=== PATIENT | female | born 2000 ===

== ENCOUNTER 2021-03-14 02:02 | Emergency (ER) | payer SELFPAY ==
[2021-03-14 08:27] LABS: Appearance Urine HAZY; Color Urine YELLOW; Glucose Urine UA NEG (NEG); Leukocyte Esterase Urine NEG (NEG); Nitrite Urine NEG (NEG); UACC Culture Trigger NO; Urine Blood TRACE (NEG); Urine Ketones >=80 MG/DL (NEG); Urine Protein 1+ MG/DL (NEG-TRACE)
[2021-03-14 08:30] LABS: UPreg QC Valid YES; Urine Pregnancy NEGATIVE (NEGATIVE)
[2021-03-14 08:42] LABS: Basophils Percent Auto 0.1 % (0-2); Hematocrit 36.1 % (37-47); Hemoglobin 12.3 g/dl (12.0-16.0); Imm Gran Abs Auto 0.05 X10*3/uL (0.00-0.03); Imm Gran Pct Auto 0.5 % (0.0-0.4); Lymphocytes Absolute Auto 0.6 X10*3/uL (1.2-4.9); Lymphocytes Percent Auto 5.8 % (20-40); MANUAL DIFF FLAG SCAN; Mean Corpuscular HGB Conc 34.1 g/dl (31.0-35.0); Mean Corpuscular Hemoglobin 30.9 pg (27.0-33.0); Mean Corpuscular Volume 90.7 fL (80-98); Mean Platelet Volume 10.4 fL (9.4-12.3); Monocytes Absolute Auto 0.1 X10*3/uL (0.1-1.2); Monocytes Percent Auto 1.2 % (2-11); Neutrophils Absolute Auto 9.8 X10*3/uL (2.0-8.3); Neutrophils Percent Auto 92.4 % (45-73); Platelet Count 209 X10*3/uL (160-400); Red Blood Count 3.98 X10*6/uL (4.20-5.50); Red Cell Distribution Width 12.4 % (11.0-16.0); SCAN SMEAR FLAG 1; White Blood Count 10.7 X10*3/uL (4.8-10.8)
[2021-03-14 08:50] LABS: Squamous Epithelial Cell Urine 3+ /LPF; WBC Urine 0-2 /HPF (0-4)
[2021-03-14 08:51] LABS: Bacteria Urine 3+ /LPF; RBC Urine 0-2 /HPF (0)
[2021-03-14 08:56] LABS: Anion Gap 16 (12-20); Blood Urea Nitrogen 12 mg/dL (9-16); Carbon Dioxide 19 mmol/L (22-29); Chloride 108 mmol/L (96-108); Estimated Glomerular Filt Rate > 60; Potassium 3.7 mmol/L (3.3-5.1); Sodium 139 mmol/L (135-145)
[2021-03-14 09:00] LABS: SLIDE REVIEW VERIFIED
[2021-03-14 09:04] VITALS: BP 115/68; PULSE 69; RESP 14; TEMP 36.7; O2SAT 99
== END 2021-03-14 09:30 | disposition home or self-care (01) ==
PROVIDERS: Emergency Provider Emergency Medicine
DX: Z04.9 Encounter for examination and observation for unspecified reason (principal); Z79.899 Other long term (current) drug therapy
CPT/HCPCS: 36415; 80051; 81001; 81025; 82565; 84520; 85025; 96361; 96374; 99281; 99284

== ENCOUNTER 2023-12-06 09:23 | Emergency (ER) | payer OTHER, SELFPAY ==
--- NOTE | ~2023-12-06 | CT_ITS ---
EXAMINATION: CT ABDOMEN AND PELVIS WITH CONTRAST CLINICAL INFORMATION: Right sided abdominal pain. COMPARISON: None available. TECHNIQUE: Multidetector volumetric images were obtained from the superior aspect of the liver through the pubic symphysis following administration 85 mL of Omnipaque 350 intravenous contrast. Sagittal and coronal reformatted images were obtained on the technologist's workstation. Oral contrast: No This CT examination was performed using dose optimization techniques as appropriate, variously including the following: *Automated exposure control *Adjustment of mA and/or kV according to patient size (this includes techniques or standardized protocols for targeted exams where dose is matched to indication/reason for exam; i.e. extremities or head) *Use of iterative reconstruction technique DLP: 630 mGy-cm FINDINGS: LUNG BASES: The lung bases appear clear, with no evidence of inflammation or nodules. LIVER, GALLBLADDER, AND BILIARY TREE: The liver appears unremarkable in size, shape, and attenuation. No focal hepatic lesion or biliary ductal dilatation is appreciated. Unremarkable appearance of the gallbladder. PANCREAS: Unremarkable SPLEEN: Unremarkable ADRENAL GLANDS: Unremarkable KIDNEYS AND URETERS: The kidneys appear unremarkable in size, shape, and attenuation. No hydronephrosis, hydroureter, or calculi seen. BLADDER: Unremarkable GASTROINTESTINAL TRACT: The small and large bowel appear unremarkable. No diverticulosis. Normal-appearing distal ileum and vermiform appendix. ABDOMINAL WALL: No significant hernia is appreciated. LYMPH NODES: No evidence of adenopathy by size criteria. VASCULAR: Left ovarian venous reflux and varices. PELVIC VISCERA: Unremarkable OSSEOUS STRUCTURES: Unremarkable CT/CT abdomen pelvis w IV con IMPRESSION: No acute finding.
[2023-12-06 09:27] VITALS: PULSE 89; RESP 19; TEMP 36.6; O2SAT 98; BMI 26.6
[2023-12-06 09:48] VITALS: BP 111/81; PULSE 93; RESP 22; O2SAT 98
[2023-12-06 10:00] LABS: MANUAL DIFF FLAG NO
[2023-12-06 10:02] LABS: Basophils Percent Auto 0.3 % (0-2); Eosinophils Absolute Auto 0.1 X10*3/uL (0.0-0.4); Eosinophils Percent Auto 0.5 % (0-4); Hematocrit 44.5 % (37.0-47.0); Hemoglobin 15.2 g/dl (12.0-16.0); Imm Gran Abs Auto 0.03 X10*3/uL (0.00-0.03); Imm Gran Pct Auto 0.3 % (0.0-0.4); Lymphocytes Absolute Auto 2.2 X10*3/uL (1.2-4.9); Lymphocytes Percent Auto 19.6 % (20-40); Mean Corpuscular HGB Conc 34.2 g/dl (31.0-35.0); Mean Corpuscular Hemoglobin 30.3 pg (27.0-33.0); Mean Corpuscular Volume 88.8 fL (80.0-98.0); Mean Platelet Volume 11.1 fL (9.4-12.3); Monocytes Absolute Auto 0.5 X10*3/uL (0.1-1.2); Monocytes Percent Auto 4.2 % (2-11); Neutrophils Absolute Auto 8.4 x10*3/uL (2.0-8.3); Neutrophils Percent Auto 75.1 % (45-73); Platelet Count 240 X10*3/uL (160-400); Red Blood Count 5.01 X10*6/uL (4.20-5.50); Red Cell Distribution Width 12.1 % (11.0-16.0); White Blood Count 11.2 X10*3/uL (4.8-10.8)
[2023-12-06] MEDS: diphenhydrAMINE HCL 50 MG/ML VIAL 25 MG IVPUSH (10:06)
[2023-12-06] MEDS: Metoclopramide HCl 10 MG/2 ML VIAL IVPUSH (10:07)
--- NOTE | 2023-12-06 10:09 | ED.NAVMDI ---
HPI - Nausea/Vomiting/Diarrhea General Chief complaint: Nausea/Vomiting/Diarrhea Stated complaint: vomitting Time Seen by Provider: 12/06/23 09:46 Source: patient Mode of arrival: ambulatory Limitations: no limitations History of Present Illness ED Provider: Tray KHALIL HPI Narrative: 23-year-old female with no known medical history presenting to the emergency department with complaints of nausea, vomiting, feeling unwell all of which started this morning. She had a similar episode about 2 weeks ago. She reports these episodes are associated with right sided abdominal pain unable to specify that is upper or lower. She reports that this has been going on for a few months however this time it seems to be more severe. She tells me she has been dry heaving since this morning when she woke up, not actually vomiting anything today. Denies fevers, chills, sick contacts, chest pain, shortness of breath, headache, vision changes, dizziness, weakness, hematochezia, changes in urination or bowel habits. Took Zofran prior to arrival with little to no relief. Hx of cyclic vomiting syndrome via [facility]. Was recently put on atbx ( flagyl for BV) and has been taking them for 5 days and she feels like this could be playing a role in her stomac upset. Related Data Allergies Allergy/AdvReac Type Severity Reaction Status Date / Time No Known Allergies Allergy Verified 12/06/23 09:29 Review of Systems Review of Systems: Yes all other systems are reviewed and are negative PMFSH Past Medical History Attestation statement: The following information was validated with the patient. Source: old records reviewed and nursing notes reviewed Social History Social History Smoked in Last 30 Days: Yes Use of substances other than those prescribed or required for medical reasons: Yes Substance Use Type: Marijuana Advance Directives: No Advance Directives Information Provided: Yes Patient : No Physical Exam Vital Signs: Vital Signs: Last Vital Signs Temp 98 F 12/06/23 09:27 Pulse 91 12/06/23 13:01 Resp 18 12/06/23 13:01 BP 125/83 12/06/23 13:01 Pulse Ox 100 12/06/23 13:01 O2 Del Method Room Air 12/06/23 13:01 BMI result Body Mass Index 26.6 vss Appearance: Alert.? Oriented X3.? No acute distress.? Head: Normocephalic, atraumatic, no step-offs or deformities Eyes: Pupils equal, round and reactive to light.? Neck: Normal inspection.? Neck supple.? CVS: Normal heart rate and rhythm.? Pulses normal.? Respiratory: No respiratory distress.? Breath sounds normal.? Abdomen: Soft and right sided tenderness.? Skin: Skin warm and dry.? Normal skin color.? Normal skin turgor.? Extremities: No lower extremity edema.? No calf ttp. 5/5 strength to bilateral upper and lower extremities Neuro: Oriented X 3.? No motor deficit.? No sensory deficit. CN 2-12 intact Course Reevaluation(s) Reevaluation #1: CBC with leukocytosis likely reactive secondary to nausea and vomiting. Chemistry with slightly elevated anion gap likely secondary to acute dehydration. Normal BUN and creatinine. Magnesium 1.5 will give oral Mag. Normal lipase. Normal beta hCG Patient was having significant dry heaving, nausea even after Reglan, Benadryl and Zofran. I did try Compazine with little to no effect. IV Haldol was ordered, prior to giving this EKG was obtained normal QT/QTC. Time: 12:00 Reevaluation #2: Patient no longer dry heaving. Resting. Time: 12:26 Reevaluation #3: CT abdomen and pelvis no acute findings. Patient does have history of cyclic vomiting. Seems to be doing a lot better. No longer dry heaving or having nausea and vomiting. Plan is for discharge home. Will have her follow-up with PCP. Not complaining of any pain. Educated patient on diagnosis and treatment plan, answered all question, patient verbalizes understanding. At this time patient will be discharged home, advised to return with new or worsening symptoms. Educated on worrisome signs and symptoms and when to return. At this time I feel comfortable discharge home. Time: 14:40 Medications Administered Discontinued Medications Generic Name Dose Route Start Last Admin Trade Name Freq PRN Reason Stop Dose Admin Diphenhydramine HCl 25 mg 12/06/23 09:59 12/06/23 10:06 Diphenhydramine Hcl 50 Mg/Ml Vial IVPUSH 12/06/23 10:00 25 mg ONCE ONE Administration Haloperidol Lactate 2.5 mg 12/06/23 10:55 12/06/23 11:09 Haloperidol Lactate 5 Mg/Ml Vial IVPUSH 12/06/23 10:56 2.5 mg ONCE ONE Administration Sodium Chloride 1,000 mls @ 999 mls/hr 12/06/23 12:45 12/06/23 12:59 Ns IV 12/06/23 13:45 999 mls/hr .Q1H1M LENORA Administration Iohexol 85 ml 12/06/23 12:08 12/06/23 12:08 Iohexol 350 Mg/Ml 100 Ml Infus..Btl IV 12/06/23 12:09 85 ml ONCE ONE Administration Lorazepam 1 mg 12/06/23 10:09 12/06/23 10:59 Lorazepam 2 Mg/Ml Vial IVPUSH 12/06/23 10:10 1 mg ONCE ONE Administration Magnesium Oxide 400 mg 12/06/23 12:26 12/06/23 12:59 Magnesium Oxide 400 Mg Tablet PO 12/06/23 12:27 400 mg ONCE ONE Administration Metoclopramide HCl 10 mg 12/06/23 09:59 12/06/23 10:07 Metoclopramide Hcl 10 Mg/2 Ml Vial IVPUSH 12/06/23 10:00 10 mg ONCE ONE Administration Medical Decision Making Medical Decision Making [facility] Narrative: 1013 23-year-old female presents with nausea, and abdominal pain reported vomiting a few weeks ago however not today. Physical exam patient dry heaving upon exam with diffuse right-sided abdominal tenderness. Will rule out cholecystitis versus cholelithiasis versus appendicitis versus viral illness versus . Unlikely ectopic, torsion, acute abdomen, diverticulitis, pancreatitis. Other differentials include cyclic vomiting. She could also be having nausea and vomiting secondary to effects of antibiotic (Flagyl) which makes people sick particularly if taking with alcohol Plan labs, imaging, urine. Differential Diagnosis Differential Diagnoses: The differential diagnosis associated with the presentation includes Will rule out cholecystitis versus cholelithiasis versus appendicitis versus viral illness versus . Unlikely ectopic, torsion, acute abdomen, diverticulitis, pancreatitis. Other differentials include cyclic vomiting. She could also be having nausea and vomiting secondary to effects of antibiotic (Flagyl) which makes people sick particularly if taking with alcohol Admission/Observation Consideration of admission/observation: Escalation of care including admission/observation considered unlikely Lab Data [facility] Lab Attestation statement: I reviewed the patient's lab results. 12/06/23 09:57 12/06/23 09:57 Labs: Lab Results 12/06/23 12/06/23 Range/Units 09:57 11:13 WBC 11.2 H (4.8-10.8) X10*3/uL RBC 5.01 (4.20-5.50) X10*6/uL Hgb 15.2 (12.0-16.0) g/dl Hct 44.5 (37.0-47.0) % MCV 88.8 (80.0-98.0) fL MCH 30.3 (27.0-33.0) pg MCHC 34.2 (31.0-35.0) g/dl RDW 12.1 (11.0-16.0) % Plt Count 240 (160-400) X10*3/uL MPV 11.1 (9.4-12.3) fL Immature Gran % (Auto) 0.3 (0.0-0.4) % Neut % (Auto) 75.1 H (45-73) % Lymph % (Auto) 19.6 L (20-40) % [place] % (Auto) 4.2 (2-11) % Eos % (Auto) 0.5 (0-4) % Baso % (Auto) 0.3 (0-2) % Lymph # (Auto) 2.2 (1.2-4.9) X10*3/uL [place] # (Auto) 0.5 (0.1-1.2) X10*3/uL Eos # (Auto) 0.1 (0.0-0.4) X10*3/uL Baso # (Auto) 0.0 (0.0-0.2) X10*3/uL Abs Immat Gran (auto) 0.03 (0.00-0.03) X10*3/uL Absolute Neuts (auto) 8.4 H (2.0-8.3) x10*3/uL Absolute Nucleated RBC 0.000 (0.0-0.012) X10*3/uL Nucleated RBC % (auto) 0.0 (0.0-0.2) /100WBC Sodium 142 (135-145) mmol/L Potassium 3.6 (3.3-5.1) mmol/L Chloride 108 (96-108) mmol/L Carbon Dioxide 17 L (22-29) mmol/L Anion Gap 21 H (12-20) BUN 11 (9-16) mg/dL Creatinine 0.77 (0.5-1.4) mg/dL Estim Creat Clear Calc 105.1 Estimated GFR > 60 Random Glucose 125 H (60-115) mg/dL Calcium 10.0 (8.4-10.2) mg/dL Magnesium 1.5 L (1.6-2.6) mg/dL Total Bilirubin 0.9 (0.0-1.0) mg/dL AST 12 (5-31) U/L ALT 9 (0-31) U/L Alkaline Phosphatase 47 (39-117) U/L Total Protein 8.2 H (6.5-8.0) g/dL Albumin 4.9 (3.5-5.0) g/dL Lipase 19 (8-78) U/L Beta HCG, Quant < 2 mIU/mL Ethyl Alcohol < 10 mg/dL Independent Interpretation I performed an independent interpretation of an: CT Scan Radiology Impression Discussion of test interpretation with radiology: I have reviewed the radiologist's reading. External Record Review External record reviewed: Office record, Outpatient record and Prior outpatient labs Critical Care Time Critical Care Time Critical Care Time: Yes Total Critical Care Time: 35 Attestation: I attest to this time spent taking care of the patient, obtaining history, physical, reviewing labs, imaging, speaking to my attending, specialist or hospitalist. Discharge Plan Discharge Clinical Impression: Cyclical vomiting Patient Disposition: Home, Self-Care Instructions: Acute Nausea and Vomiting (ED) Additional Instructions: Take your medications as prescribed. If you were prescribed antibiotics today, it is important that you take your medication to their entirety, do not skip any doses, do not finish them early. Follow-up with your primary care provider this week. Return to the emergency department with new or worsening symptoms. Such as fevers, chills, chest pain, shortness of breath, nausea, vomiting, dizziness, headache, vision changes, lethargy In case of emergency call [address]/CT abdomen pelvis w IV con IMPRESSION: No acute finding. Referrals: Physician,Unknown J [Primary Care Provider] - 2 days Stand Alone Forms: Work/School Release Print Language: Slovak
--- NOTE | 2023-12-06 10:18 | PC.NURSE ---
Pt is alert and oriented x 4, states n/v starting this morning with general abd pain more so to RUQ. States H/O same episodes. Carpal/pedal spasms noted, encouraged to slow breathing with some effect. Skin pink warm and dry. Actively vomiting during assessment. Denies urinary sx. IV established and medicated as charted. Visitor at bedside
[2023-12-06 10:26] LABS: Alanine Aminotransferase 9 U/L (0-31); Albumin Level 4.9 g/dL (3.5-5.0); Alkaline Phosphatase 47 U/L (39-117); Anion Gap 21 (12-20); Aspartate Amino Transferase 12 U/L (5-31); Bilirubin Total 0.9 mg/dL (0.0-1.0); Blood Urea Nitrogen 11 mg/dL (9-16); Carbon Dioxide 17 mmol/L (22-29); Chloride 108 mmol/L (96-108); Creatinine Clr Calc Pharmacy 105.1; Estimated Glomerular Filt Rate > 60; Glucose Random 125 mg/dL (60-115); Lipase 19 U/L (8-78); Magnesium 1.5 mg/dL (1.6-2.6); Potassium 3.6 mmol/L (3.3-5.1); Sodium 142 mmol/L (135-145); Total Protein 8.2 g/dL (6.5-8.0)
--- NOTE | 2023-12-06 10:55 | ECG_ITS ---
Test Reason : NAUSEA Blood Pressure : / mmHG Vent. Rate : 072 BPM Atrial Rate : 072 BPM P-R Int : 146 ms QRS Dur : 090 ms QT Int : 394 ms P-R-T Axes : 050 079 -03 degrees QTc Int : 431 ms Normal sinus rhythm with sinus arrhythmia ST & T wave abnormality, consider inferior ischemia ST & T wave abnormality, consider anterolateral ischemia Abnormal ECG No previous ECGs available Referred By: Fela Chau Electronically Signed By:ISIDORO FERRELL MD
[2023-12-06] MEDS: LORazepam 2 MG/ML VIAL 1 MG IVPUSH (10:59)
[2023-12-06] MEDS: Haloperidol Lactate 5 MG/ML VIAL 2.5 MG IVPUSH (11:09)
--- NOTE | 2023-12-06 11:09 | PC.NURSE ---
relief s/p initial medication interventions however pt now vomiting and carpal/pedal spasms again noted. medicated as charted
--- NOTE | 2023-12-06 11:18 | PC.NURSE ---
pt reporting cont'd abd pain, nausea/vomiting, muscle spasms. EKG QTc <500, medicated per Aug IVP ativan and haldol.
[2023-12-06 11:39] LABS: HCG Quantitative < 2 mIU/mL
[2023-12-06] MEDS: iohexoL 350 MG/ML 100 ML INFUS..BTL 85 ML IV (12:08)
[2023-12-06 12:38] LABS: Ethanol < 10 mg/dL
[2023-12-06] MEDS: Magnesium Oxide 400 MG TABLET PO (12:59)
[2023-12-06] MEDS: 0.9 % Sodium Chloride 1,000 ML 999 ML IV (12:59)
[2023-12-06 13:01] VITALS: BP 125/83; PULSE 91; RESP 18; O2SAT 100
[2023-12-06 14:41] VITALS: BP 106/69; PULSE 61; RESP 12; O2SAT 100
[2023-12-06 14:58] VITALS: BP 106/69; PULSE 75; RESP 17; TEMP 36.5; O2SAT 98
== END 2023-12-06 14:59 | disposition home or self-care (01) ==
PROVIDERS: Physician Assistant; Emergency Provider Emergency Medicine Emergency Medical Services
DX: R11.15 Cyclical vomiting syndrome unrelated to migraine (principal)
CPT/HCPCS: 36415; 74177; 80053; 80307; 83690; 83735; 84702; 85025; 93005; 96374; 96375; 99284; 99285; J1200; J1630; J2060; J2765; Q9967

== ENCOUNTER → 2023-12-06 10:55 | Outpatient (BNV) | payer OTHER, SELFPAY | PROVIDERS: Emergency Provider Emergency Medicine Emergency Medical Services; Visit Provider Internal Medicine Cardiovascular Disease | DX: I49.9 Cardiac arrhythmia, unspecified (principal) | CPT/HCPCS: 93010 ==

== ENCOUNTER 2023-12-06 20:11 | Emergency (ER) | payer OTHER, SELFPAY ==
[2023-12-06 20:24] VITALS: BP 121/63; PULSE 100; RESP 18; TEMP 37.2; O2SAT 98; BMI 26.6
[2023-12-06 20:40] LABS: Basophils Percent Auto 0.1 % (0-2); Hematocrit 39.1 % (37.0-47.0); Hemoglobin 14.3 g/dl (12.0-16.0); Imm Gran Abs Auto 0.02 X10*3/uL (0.00-0.03); Imm Gran Pct Auto 0.2 % (0.0-0.4); Lymphocytes Absolute Auto 0.6 X10*3/uL (1.2-4.9); Lymphocytes Percent Auto 6.1 % (20-40); MANUAL DIFF FLAG SCAN; Mean Corpuscular HGB Conc 36.6 g/dl (31.0-35.0); Mean Corpuscular Hemoglobin 31.7 pg (27.0-33.0); Mean Corpuscular Volume 86.7 fL (80.0-98.0); Monocytes Absolute Auto 0.1 X10*3/uL (0.1-1.2); Neutrophils Absolute Auto 9.7 x10*3/uL (2.0-8.3); Neutrophils Percent Auto 92.6 % (45-73); Platelet Count 220 X10*3/uL (160-400); Red Blood Count 4.51 X10*6/uL (4.20-5.50); SCAN SMEAR FLAG 1; White Blood Count 10.4 X10*3/uL (4.8-10.8)
--- NOTE | 2023-12-06 20:43 | ED_ITS ---
HPI - General Adult General Chief complaint: General Medical Stated complaint: vomiting/freezing here ealier today Time Seen by Provider: 12/06/23 20:34 Source: patient Mode of arrival: ambulatory Limitations: no limitations History of Present Illness ED Provider: Dr. Magalie Carmichael HPI narrative: patient comes to the emergency room complaining of nausea vomiting and abdominal pain. Patient states that she was seen here earlier today for the same, diagnosed with cyclical vomiting, admits to using marijuana. Patient states that she tried eating at home, started vomiting. Also, patient states that her hands and feet look up , patient admits to have anxiety. Related Data Previous Rx's ?Medication ?Instructions ?Recorded metoclopramide HCl 5 mg tablet 5 mg PO . t.i.d. PRN nausea and 12/06/23 (Reglan) vomiting #14 tabs Allergies Allergy/AdvReac Type Severity Reaction Status Date / Time No Known Allergies Allergy Verified 12/06/23 20:27 Review of Systems 2 Review of Systems: Constitutional : No Weight loss, No Fever, No Chills, No Night Sweats, No Fatigue, No Malaise ENT/Mouth : No Hearing loss, No Ear Pain, No Nasal Congestion, No Sinus Pain, No Hoarseness, No sore throat, No Rhinorrhea, No Swallowing Difficulty Eyes: No Eye Pain, No Swelling, No Redness, No Foreign Body, No Discharge, No Vision Changes Cardiovascular : No Chest Pain, No SOB, No Dyspnea on Exertion, No Orthopnea, No Edema, No Palpitations Respiratory : No Cough, No Sputum, No Wheezing, No Smoke Exposure, No Dyspnea Gastrointestinal : Complaining of nausea and vomiting, No Diarrhea, No Constipation, complaining of abdominal discomfort Genitourinary : no irregular bleeding, No Dysuria, No Urinary Frequency, No Hematuria, No Urinary Incontinence, No Urgency, No Flank Pain, No Urinary Flow Changes, No Hesitancy Musculoskeletal : complaining of hands and feet locking up , No joint pain, No Myalgias, No Joint Swelling Skin : No Skin Lesions, No rash Neuro : No Weakness, No Numbness, No Paresthesias, No Loss of Consciousness, No Dizziness, No Headache Psych : No Anxiety/Panic, No Depression, No SI/HI/AH/VH, No Social Issues, Heme/Lymph: No Bruising, No Bleeding,No Lymphadenopathy Endocrine : No Polyuria, No Polydipsia, No Temperature Intolerance PMFSH Past Medical History Medical History (Updated 12/06/23 @ 23:54 by Magalie Carmichael MD) Cyclical vomiting Social History Social History Smoked in Last 30 Days: No Use of substances other than those prescribed or required for medical reasons: Yes Substance Use Type: Marijuana Advance Directives: No Advance Directives Information Provided: No Do you have a plan to hurt others: No Plan Patient : No Physical Exam ED Vital Signs: Vital Signs - 24 hr 12/06/23 20:24 12/06/23 22:53 Temperature 98.9 F 98.4 F Pulse Rate 100 92 Respiratory Rate 18 18 Blood Pressure 121/63 126/58 L Pulse Oximetry 98 100 Oxygen Delivery Method Room Air Room Air BMI result Body Mass Index 26.6 Const Other: Appearance: Alert. Oriented X3. No acute distress. well-appearing but slightly uncomfortable Eyes: Pupils equal, round and reactive to light. ENT: Pharynx normal. Neck: Normal inspection. Neck supple. No lymph nodes noted. No crepitus CVS: Normal heart rate and rhythm. Pulses normal. Normal S1 and S2 Respiratory: No respiratory distress. Breath sounds normal. No Wheezing. No rales Abdomen: Soft , discomfort to palpation in all quadrants, No rigidity. No distention. Skin: Skin warm and dry. Normal skin color. Normal skin turgor. Extremities: No lower extremity edema. No Lacerations. No Rash Neuro: Oriented X 3. No motor deficit. No sensory deficit. Moving all extremities. No slurred speech. CN 2 through 12 grossly intact Psych: calm, cooperative, normal affect Course Course Course Narrative: - we will repeat labs, check for electrolyte abnormalities. - I reviewed patient's labs from earlier today, no obvious abnormality. - I reviewed patient's CT scan of the abdomen from earlier today, no acute abnormalities. - Patient receiving IV fluids, Reglan, Pepcid, Benadryl and Ativan Medications Administered Discontinued Medications Generic Name Dose Route Start Last Admin Trade Name Freq PRN Reason Stop Dose Admin Diphenhydramine HCl 50 mg 12/06/23 20:42 12/06/23 21:14 Diphenhydramine Hcl 50 Mg/Ml Vial IVPUSH 12/06/23 20:43 50 mg ONCE ONE Administration Famotidine 20 mg 12/06/23 20:42 12/06/23 21:16 Famotidine/Pf 20 Mg/2 Ml Vial IVPUSH 12/06/23 20:43 20 mg ONCE ONE Administration Sodium Chloride 1,000 mls @ 999 mls/hr 12/06/23 20:42 12/06/23 22:31 Ns IVCONT 12/06/23 21:42 Infused .Q1H1M ONE Infusion Lorazepam 1 mg 12/06/23 20:42 12/06/23 21:14 Lorazepam 2 Mg/Ml Vial IVPUSH 12/06/23 20:43 1 mg STAT STA Administration Metoclopramide HCl 10 mg 12/06/23 20:42 12/06/23 21:16 Metoclopramide Hcl 10 Mg/2 Ml Vial IVPUSH 12/06/23 20:43 10 mg ONCE ONE Administration Medical Decision Making Medical Decision Making [facility] Narrative: - my interpretation of labs, no acute hematology and chemistry abnormality, better than on her previous visit - after IV treatment, patient feeling much better, no longer cramping in her lower or upper extremities, no vomiting, patient was able to tolerate both fluid and p.o. solids and feels well to be going home Differential Diagnosis Differential Diagnoses: The differential diagnosis associated with the presentation includes ( cyclical vomiting, anxiety) Lab Data [facility] Lab Attestation statement: I reviewed the patient's lab results. 12/06/23 20:34 12/06/23 20:34 Labs: Lab Results 12/06/23 12/06/23 Range/Units 20:34 21:39 WBC 10.4 (4.8-10.8) X10*3/uL RBC 4.51 (4.20-5.50) X10*6/uL Hgb 14.3 (12.0-16.0) g/dl Hct 39.1 (37.0-47.0) % MCV 86.7 (80.0-98.0) fL MCH 31.7 (27.0-33.0) pg MCHC 36.6 H (31.0-35.0) g/dl RDW 12.0 (11.0-16.0) % Plt Count 220 (160-400) X10*3/uL MPV 11.0 (9.4-12.3) fL Immature Gran % (Auto) 0.2 (0.0-0.4) % Neut % (Auto) 92.6 H (45-73) % Lymph % (Auto) 6.1 L (20-40) % [place] % (Auto) 1.0 L (2-11) % Eos % (Auto) 0.0 (0-4) % Baso % (Auto) 0.1 (0-2) % Lymph # (Auto) 0.6 L (1.2-4.9) X10*3/uL [place] # (Auto) 0.1 (0.1-1.2) X10*3/uL Eos # (Auto) 0.0 (0.0-0.4) X10*3/uL Baso # (Auto) 0.0 (0.0-0.2) X10*3/uL Abs Immat Gran (auto) 0.02 (0.00-0.03) X10*3/uL Absolute Neuts (auto) 9.7 H (2.0-8.3) x10*3/uL Absolute Nucleated RBC 0.000 (0.0-0.012) X10*3/uL Nucleated RBC % (auto) 0.0 (0.0-0.2) /100WBC Smear Tech's Comments VERIFIED Sodium 140 (135-145) mmol/L Potassium 3.8 (3.3-5.1) mmol/L Chloride 109 H (96-108) mmol/L Carbon Dioxide 15 L (22-29) mmol/L Anion Gap 20 (12-20) BUN 9 (9-16) mg/dL Creatinine 0.66 (0.5-1.4) mg/dL Estim Creat Clear Calc 122.7 Estimated GFR > 60 Random Glucose 130 H (60-115) mg/dL Calcium 9.7 (8.4-10.2) mg/dL Magnesium 1.5 L (1.6-2.6) mg/dL Total Bilirubin 1.0 (0.0-1.0) mg/dL AST 11 (5-31) U/L ALT 10 (0-31) U/L Alkaline Phosphatase 45 (39-117) U/L Total Protein 7.9 (6.5-8.0) g/dL Albumin 4.8 (3.5-5.0) g/dL Lipase 14 (8-78) U/L Urine Color Yellow Urine Appearance Clear Urine pH 8.5 (5.0-9.0) Ur Specific [place] >= 1.030 H (1.005-1.025) Urine Protein Trace (Neg-Trace) mg/dL Urine Glucose (UA) Negative (Negative) mg/dL Urine Ketones >=160 (Negative) mg/dL Urine Blood Trace H (Negative) Urine Nitrite Negative (Negative) Ur Leukocyte Esterase Negative (Negative) Urine RBC 11-20 H (0-2) /HPF Urine WBC 0-5 (0-5) /HPF Ur Squamous Epith Cells 11-20 (0-2) /HPF Urine Bacteria 1+ (None Seen) Hyaline Casts 0-2 (0-2) /LPF Urine Test NEGATIVE (NEGATIVE) Urine Opiates Screen Not Detected (Not Detect) Ur Buprenorphine Scrn Not Detected (Not Detect) ng/mL Ur Oxycodone Screen Not Detected (Not Detect) ng/mL Urine Methadone Screen Not Detected (Not Detect) ng/mL Urine Fentanyl Screen Not Detected (Not Detect) Ur Barbiturates Screen Not Detected (Not Detect) Ur Phencyclidine Scrn Not Detected (Not Detect) Ur Amphetamines Screen Not Detected (Not Detect) U Benzodiazepines Scrn Not Detected (Not Detect) Urine Cocaine Screen Not Detected (Not Detect) U Marijuana (THC) Screen POSITIVE H (Not Detect) Ethyl Alcohol < 10 mg/dL Critical Care Time Critical Care Time Critical Care Time: Yes Total Critical Care Time: 45 Attestation: Please follow-up with your primary care physician tomorrow. If you have any worsening or new symptoms, please return to the emergency room or call 911 Discharge Plan Discharge Clinical Impression: Cyclical vomiting, Anxiety Patient Disposition: Home, Self-Care Instructions: Acute Nausea and Vomiting (ED), Anxiety (ED) Additional Instructions: Please follow-up with your primary care physician tomorrow. please stop using marijuana as this is the main cause of the reoccurring abdominal pain nausea and vomiting. If you have any worsening or new symptoms, please return to the emergency room or call 911 Prescriptions: New metoclopramide HCl [Reglan] 5 mg tablet 5 mg PO . t.i.d. PRN (Reason: nausea and vomiting) Qty: 14 0RF Print Language: Croatian
[2023-12-06 20:54] LABS: Alanine Aminotransferase 10 U/L (0-31); Albumin Level 4.8 g/dL (3.5-5.0); Alkaline Phosphatase 45 U/L (39-117); Anion Gap 20 (12-20); Aspartate Amino Transferase 11 U/L (5-31); Blood Urea Nitrogen 9 mg/dL (9-16); Calcium 9.7 mg/dL (8.4-10.2); Carbon Dioxide 15 mmol/L (22-29); Chloride 109 mmol/L (96-108); Creatinine Clr Calc Pharmacy 122.7; Estimated Glomerular Filt Rate > 60; Glucose Random 130 mg/dL (60-115); Lipase 14 U/L (8-78); Magnesium 1.5 mg/dL (1.6-2.6); Potassium 3.8 mmol/L (3.3-5.1); Sodium 140 mmol/L (135-145); Total Protein 7.9 g/dL (6.5-8.0)
[2023-12-06 20:58] LABS: SLIDE REVIEW VERIFIED
[2023-12-06] MEDS: 0.9 % Sodium Chloride 1,000 ML 999 ML IVCONT (21:09)
[2023-12-06] MEDS: LORazepam 2 MG/ML VIAL 1 MG IVPUSH (21:14)
[2023-12-06] MEDS: diphenhydrAMINE HCL 50 MG/ML VIAL IVPUSH (21:14)
[2023-12-06] MEDS: Metoclopramide HCl 10 MG/2 ML VIAL IVPUSH (21:16)
[2023-12-06] MEDS: Famotidine/PF 20 MG/2 ML VIAL IVPUSH (21:16)
[2023-12-06 21:47] LABS: Appearance Urine Clear; Color Urine Yellow; Glucose Urine UA Negative (Negative); Leukocyte Esterase Urine Negative (Negative); Nitrite Urine Negative (Negative); PH 8.5 (5.0-9.0); Specific Gravity - Urine >= 1.030 (1.005-1.025); UMIC TRIGGER UACC YES; Urine Blood Trace (Negative); Urine Ketones >=160 mg/dL (Negative); Urine Protein Trace mg/dL (Neg-Trace)
[2023-12-06 21:49] LABS: UPreg QC Valid YES; Urine Pregnancy NEGATIVE (NEGATIVE)
[2023-12-06 21:52] LABS: Bacteria Urine 1+ (None Seen); Hyaline Casts Urine 0-2 /LPF (0-2); WBC Urine 0-5 /HPF (0-5)
[2023-12-06 21:59] LABS: Amphetamine Screen Urine Not Detected (Not Detect); Barbiturates, Urine Not Detected (Not Detect); Benzodiazepines Screen Urine Not Detected (Not Detect); Buprenorphine Scr Not Detected (Not Detect); Cannabinoid Screen Urine POSITIVE (Not Detect); Cocaine Screen Urine Not Detected (Not Detect); Fentanyl, urine Not Detected (Not Detect); Methadone Screen, Urine Not Detected (Not Detect); Opiate Screen Urine Not Detected (Not Detect); Oxycodone Screen Urine Not Detected (Not Detect); Phencyclidine Screen Urine Not Detected (Not Detect)
[2023-12-06 22:20] LABS: Ethanol < 10 mg/dL
--- NOTE | 2023-12-06 22:50 | PC.NURSE ---
pt rec antiemetic and 1L IVF. pt complains of 5/10 chest wall pain- she believes this pain is from her excessive vomitting throughout the day. sig other at bedside-- no additional complaints at this time,. call [facility] with reach
[2023-12-06 22:53] VITALS: BP 126/58; PULSE 92; RESP 18; TEMP 36.9; O2SAT 100
--- NOTE | 2023-12-06 23:28 | PC.NURSE ---
assumed care of patient at 2300. report received from Aleta FONTENOT
--- NOTE | 2023-12-06 23:55 | PC.NURSE ---
pt pass p.o. trial with no issues. reports feeling much better and ok to go home
[2023-12-06 23:59] VITALS: BP 126/58; PULSE 92; RESP 18; TEMP 36.9; O2SAT 100
== END 2023-12-07 | disposition home or self-care (01) ==
PROVIDERS: Physician Assistant Medical; Emergency Provider Emergency Medicine
DX: R11.15 Cyclical vomiting syndrome unrelated to migraine (principal); F41.9 Anxiety disorder, unspecified; F12.90 Cannabis use, unspecified, uncomplicated
CPT/HCPCS: 36415; 80053; 80307; 81001; 81025; 83690; 83735; 85025; 96361; 96374; 96375; 99284; J1200; J2060; J2765

== ENCOUNTER 2024-02-24 09:26 | Observation (INO) | payer OTHER, SELFPAY ==
--- NOTE | ~2024-02-24 | US_ITS ---
EXAMINATION: US ABDOMEN LIMITED CLINICAL INFORMATION: Right upper quadrant pain. COMPARISON: None available. TECHNIQUE: Real-time imaging of the right upper quadrant abdominal viscera. Imaging of the gallbladder and common bile duct only. FINDINGS: GALLBLADDER: Normal. The gallbladder is physiologically distended without evidence of stones, sludge, polyps, wall thickening or pericholecystic fluid. COMMON BILE DUCT: Normal in caliber measuring 0.43 cm in diameter. US/US abdomen limited IMPRESSION: No sonographic evidence of cholecystitis. Electronically signed by: Yayo Santizo DO 02/24/2024 10:09 PM EDT
[2024-02-24 09:43] VITALS: BP 127/78; PULSE 90; RESP 30; O2SAT 100; BMI 23.9
--- NOTE | 2024-02-24 09:50 | ECG_ITS ---
Test Reason : SOB Blood Pressure : / mmHG Vent. Rate : 071 BPM Atrial Rate : 072 BPM P-R Int : 110 ms QRS Dur : 084 ms QT Int : 426 ms P-R-T Axes : 049 071 006 degrees QTc Int : 462 ms Poor data quality, interpretation may be adversely affected Undetermined rhythm Nonspecific ST and T wave abnormality Abnormal ECG When compared with ECG of 06-DEC-2023 11:01, Current undetermined rhythm precludes rhythm comparison, needs review ST now depressed in Anterior leads T wave inversion less evident in Inferior leads Referred By: Generic ED Physician Electronically Signed By:MATT BRAN
[2024-02-24 10:03] LABS: MANUAL DIFF FLAG NO
--- NOTE | 2024-02-24 10:11 | PC.NURSE ---
pt aox4, ambulatory. comes to ED with friend for eval of nausea, dry heaving, panic attack, feet and hand spasms since this morning. pt woke up, went to the bathroom, and started having this episode. hx of the same. Reports sharp, severe RUQ pain worse with inspiration. Lips dry. Denies drug use, alcohol use, says smoked marijuana two days ago. IV placed 20g left AC. EKG done.
--- NOTE | 2024-02-24 10:16 | PC.NURSE ---
pt comes to ED accompanied by friend. AOx4. reports this morning she woke up, went to bathroom and started having an episode of nausea, dry heaving, panic attack, spasms of hands and feet. severe stabbing RUQ pain worse with inspiration. Lips dry. pt reports hx of the same. Denies alcohol use, says they smoked marijuana two days ago, denies other drug use. 20g IV left AC.
[2024-02-24 10:18] LABS: Basophils Percent Auto 0.2 % (0-2); Eosinophils Percent Auto 0.1 % (0-4); Hematocrit 40.6 % (37.0-47.0); Hemoglobin 14.2 g/dl (12.0-16.0); Imm Gran Abs Auto 0.06 X10*3/uL (0.00-0.03); Imm Gran Pct Auto 0.5 % (0.0-0.4); Lymphocytes Absolute Auto 1.7 X10*3/uL (1.2-4.9); Lymphocytes Percent Auto 13.8 % (20-40); Mean Corpuscular Hemoglobin 31.5 pg (27.0-33.0); Mean Platelet Volume 11.6 fL (9.4-12.3); Monocytes Absolute Auto 0.4 X10*3/uL (0.1-1.2); Monocytes Percent Auto 2.9 % (2-11); Neutrophils Absolute Auto 10.4 x10*3/uL (2.0-8.3); Neutrophils Percent Auto 82.5 % (45-73); Platelet Count 289 X10*3/uL (160-400); Red Blood Count 4.51 X10*6/uL (4.20-5.50); White Blood Count 12.6 X10*3/uL (4.8-10.8)
[2024-02-24 10:20] LABS: Anion Gap 20 (12-20); Blood Urea Nitrogen 13 mg/dL (9-16); Calcium 10.2 mg/dL (8.4-10.2); Carbon Dioxide 16 mmol/L (22-29); Chloride 110 mmol/L (96-108); Creatinine Clr Calc Pharmacy 88.2; Estimated Glomerular Filt Rate > 60; Ethanol < 10 mg/dL; Glucose Random 159 mg/dL (60-115); Magnesium 1.9 mg/dL (1.6-2.6); Potassium 3.5 mmol/L (3.3-5.1); Sodium 142 mmol/L (135-145)
[2024-02-24 10:30] LABS: Troponin-I High Sensitivity < 2.7 ng/L (<3.5-17.0)
[2024-02-24] MEDS: 0.9 % Sodium Chloride 1,000 ML 999 ML IV ×3 (10:39→15:22)
[2024-02-24] MEDS: LORazepam 2 MG/ML VIAL 1 MG IVPUSH (10:40)
[2024-02-24] MEDS: droPERidol 5 MG/2 ML VIAL 1.25 MG IVPUSH (10:41)
[2024-02-24 10:45] LABS: Influenza A PCR NEGATIVE (Negative); Influenza B PCR NEGATIVE (Negative); Resp Syncy Virus RNA Qual PCR NEGATIVE (Negative); SARS COV2 PCR INHOUSE NEGATIVE (Negative)
[2024-02-24 10:54] LABS: Alanine Aminotransferase 9 U/L (0-31); Albumin Level 4.6 g/dL (3.5-5.0); Alkaline Phosphatase 40 U/L (39-117); Aspartate Amino Transferase 10 U/L (5-31); Bilirubin Direct 0.2 mg/dL (0.0-0.5); Bilirubin Total 0.6 mg/dL (0.0-1.0); Lipase 16 U/L (8-78); Total Protein 7.8 g/dL (6.5-8.0)
--- NOTE | 2024-02-24 11:06 | ED_ITS ---
HPI - General Adult General Chief complaint: General Medical Stated complaint: panic [id number] Time Seen by Provider: 02/24/24 10:28 Source: patient Mode of arrival: ambulatory Limitations: no limitations History of Present Illness ED Provider: KAREEM LUICA narrative: 23 yo female with sig PMH of anxiety induced cyclical vomiting who does not have medications or therapy notes she was to have a new job orientation today and started to have anxiety with n/v/d abdominal cramps and hyperventilated with spasms of hands and feet. Hx of same in the past. MD complaint: anxiety n/v Onset (ago): hour(s) (few) Location: abdomen Radiation: non-radiation Severity: moderate Quality: aching Pain Consistency: constant Relieving factors: none Exacerbating factors: other Associated symptoms: loss of appetite, malaise, nausea/vomiting and weakness Treatments prior to arrival: none Related Data Previous Rx's ?Medication ?Instructions ?Recorded metoclopramide HCl 5 mg tablet 5 mg PO . t.i.d. PRN nausea and 12/06/23 (Reglan) vomiting #14 tabs hydroxyzine HCl 50 mg tablet 50 mg PO Q8H PRN anxiety #60 tabs 02/24/24 ondansetron 4 mg disintegrating 4 mg PO Q8H PRN nausea and 02/24/24 tablet vomiting #20 tabs Allergies Allergy/AdvReac Type Severity Reaction Status Date / Time No Known Allergies Allergy Verified 02/24/24 09:45 Review of Systems 2 Review of Systems: Constitutional : No Weight loss, No Fever, No Chills ENT/Mouth : No sore throat, No Rhinorrhea Eyes: No Swelling, No Redness Cardiovascular : No Chest Pain, No SOB, NoEdema Respiratory : No Cough, No Sputum, No Wheezing Gastrointestinal : Positive Nausea, Positive Vomiting, positive Diarrhea, positive abdominal Pain, No Hematochezia, No Melena Genitourinary : No Dysuria, No Urinary Frequency, No Hematuria, No Urgency Musculoskeletal : No joint pain, No Myalgias, No Joint Swelling Skin : No Skin Lesions, No rash Neuro : No Weakness, No Numbness, No Dizziness, No Headache Psych : pos Anxiety/Panic, No Depression All other systems reviewed and are negative. [facility] Past Medical History Medical History (Updated 02/24/24 @ 14:49 by Chanel Delgado DO) Cyclical vomiting Social History Social History Smoked in Last 30 Days: Yes Use of substances other than those prescribed or required for medical reasons: Yes Substance Use Type: Marijuana Advance Directives: No Physical Exam ED Vital Signs: Vital Signs - 24 hr 02/24/24 09:43 02/24/24 11:46 02/24/24 13:26 Temperature 97.5 F 98.0 F Pulse Rate 90 81 71 Respiratory Rate 30 H 16 12 Blood Pressure 127/78 105/61 121/88 Pulse Oximetry 100 100 100 Oxygen Delivery Method Room Air Room Air Room Air BMI result Body Mass Index 23.9 Appearance: Alert. Oriented X3. Moderate acute distress. Eyes: Pupils equal, round and reactive to light. ENT: Pharynx dry MM Neck: Normal inspection. Neck supple. CVS: Normal heart rate and rhythm. Pulses normal. Respiratory: No respiratory distress. Breath sounds normal. Abdomen: Soft and mild diffuse ttp no rebound or guarding Skin: Skin warm and dry. pale skin color. Extremities: No lower extremity edema. Neuro: Oriented X 3. No motor deficit. No sensory deficit. Course Course Course Narrative: patient asleep at this time Medications Administered Discontinued Medications Generic Name Dose Route Start Last Admin Trade Name Freq PRN Reason Stop Dose Admin Diphenhydramine HCl 25 mg 02/24/24 14:46 02/24/24 15:21 Diphenhydramine Hcl 50 Mg/Ml Vial IVPUSH 02/24/24 14:47 25 mg ONCE ONE Administration Droperidol 1.25 mg 02/24/24 10:35 02/24/24 10:41 Droperidol 5 Mg/2 Ml Vial IVPUSH 02/24/24 10:36 1.25 mg ONCE ONE Administration Sodium Chloride 1,000 mls @ 999 mls/hr 02/24/24 10:35 02/24/24 12:09 Ns IV 02/24/24 11:35 Infused .Q1H1M ONE Infusion Sodium Chloride 1,000 mls @ 999 mls/hr 02/24/24 13:21 02/24/24 14:24 Ns IV 02/24/24 14:21 Infused .Q1H1M ONE Infusion Sodium Chloride 1,000 mls @ 999 mls/hr 02/24/24 14:46 02/24/24 15:22 Ns IV 02/24/24 15:46 999 mls/hr .Q1H1M ONE Administration Ketorolac Tromethamine 15 mg 02/24/24 14:46 02/24/24 15:21 Ketorolac Tromethamine 15 Mg/Ml Vial IVPUSH 02/24/24 14:47 15 mg ONCE ONE Administration Lorazepam 1 mg 02/24/24 10:35 02/24/24 10:40 Lorazepam 2 Mg/Ml Vial IVPUSH 02/24/24 10:36 1 mg STAT STA Administration Metoclopramide HCl 10 mg 02/24/24 14:46 02/24/24 15:22 Metoclopramide Hcl 10 Mg/2 Ml Vial IVPUSH 02/24/24 14:47 10 mg ONCE ONE Administration Medical Decision Making Medical Decision Making [facility] Narrative: 23 yo female with sig PMH of anxiety induced cyclical vomiting here with similar complaint and presentation with n/v/d cramps and hyperventilation at this time will need labs, IVF, droperidol and ativan - has had this before will obtain labs, IVF, therapy once improved will start on PRN atarax, nausea medications and refer to [facility] Differential Diagnosis Differential Diagnoses: The differential diagnosis associated with the presentation includes anxiety, cyclical vomiting Admission/Observation Consideration of admission/observation: Escalation of care including admission/observation considered unable to tolerate PO on challenge - repeat fluids, nausea medications and IV toradol for pain ordered RUQ US ordered Lab Data [facility] Lab Attestation statement: I reviewed the patient's lab results. 02/24/24 09:56 02/24/24 09:56 Labs: Lab Results 02/24/24 Range/Units 09:56 WBC 12.6 H (4.8-10.8) X10*3/uL RBC 4.51 (4.20-5.50) X10*6/uL Hgb 14.2 (12.0-16.0) g/dl Hct 40.6 (37.0-47.0) % MCV 90.0 (80.0-98.0) fL MCH 31.5 (27.0-33.0) pg MCHC 35.0 (31.0-35.0) g/dl RDW 12.0 (11.0-16.0) % Plt Count 289 D (160-400) X10*3/uL MPV 11.6 (9.4-12.3) fL Immature Gran % (Auto) 0.5 H (0.0-0.4) % Neut % (Auto) 82.5 H (45-73) % Lymph % (Auto) 13.8 L (20-40) % Daniels % (Auto) 2.9 (2-11) % Eos % (Auto) 0.1 (0-4) % Baso % (Auto) 0.2 (0-2) % Lymph # (Auto) 1.7 (1.2-4.9) X10*3/uL Daniels # (Auto) 0.4 (0.1-1.2) X10*3/uL Eos # (Auto) 0.0 (0.0-0.4) X10*3/uL Baso # (Auto) 0.0 (0.0-0.2) X10*3/uL Abs Immat Gran (auto) 0.06 H (0.00-0.03) X10*3/uL Absolute Neuts (auto) 10.4 H (2.0-8.3) x10*3/uL Absolute Nucleated RBC 0.000 (0.0-0.012) X10*3/uL Nucleated RBC % (auto) 0.0 (0.0-0.2) /100WBC Sodium 142 (135-145) mmol/L Potassium 3.5 (3.3-5.1) mmol/L Chloride 110 H (96-108) mmol/L Carbon Dioxide 16 L (22-29) mmol/L Anion Gap 20 (12-20) BUN 13 (9-16) mg/dL Creatinine 0.82 (0.5-1.4) mg/dL Estim Creat Clear Calc 88.2 Estimated GFR > 60 Random Glucose 159 H (60-115) mg/dL Calcium 10.2 (8.4-10.2) mg/dL Magnesium 1.9 (1.6-2.6) mg/dL Total Bilirubin 0.6 (0.0-1.0) mg/dL Direct Bilirubin 0.2 (0.0-0.5) mg/dL AST 10 (5-31) U/L ALT 9 (0-31) U/L Alkaline Phosphatase 40 (39-117) U/L Troponin I High Sens < 2.7 (<3.5-17.0) ng/L Total Protein 7.8 (6.5-8.0) g/dL Albumin 4.6 (3.5-5.0) g/dL Lipase 16 (8-78) U/L Ethyl Alcohol < 10 mg/dL Influenza Type A (PCR) NEGATIVE (Negative) Influenza Type B (PCR) NEGATIVE (Negative) RSV RNA Qual (PCR) NEGATIVE (Negative) SARS-CoV-2 RNA (RT-PCR) NEGATIVE (Negative) Independent Interpretation I performed an independent interpretation of an: EKG and Ultrasound (no acute findings) Interpretation: Rate: 71 Rhythm: regular [place]: normal Normal P waves. Normal TOBY. Normal QRS complex. ST T wave : no JOSE MARTIN sig artifact noted qTC: 462 prior studies: no obvious JOSE MARTIN elevation or ischemia but sig artifact The study has been interpreted contemporaneously by me. . Radiology Impression Discussion of test interpretation with radiology: I have reviewed the radiologist's reading. Independent Historian Clinical information obtained from an independent historian. History obtained from or confirmed by: Friend External Record Review External record reviewed: Outpatient record Critical Care Time Critical Care Time Critical Care Time: Yes Total Critical Care Time: 60 Attestation: 3L of IVF, repeat nausea medications, IV ativan x 2 for anxiety, hydration, repeat assessments I attest to this time spent taking care of the patient Discharge Plan Discharge Clinical Impression: Cyclical vomiting, Anxiety Abdominal pain Qualifiers: Abdominal location: right upper quadrant Qualified Code(s): R10.11 - Right upper quadrant pain Patient Disposition: Home, Self-Care Instructions: Acute Nausea and Vomiting (ED), Anxiety (ED) Additional Instructions: eat a bland diet, stay hydrated, follow up with therapy number listed below Prescriptions: New ondansetron 4 mg tablet,disintegrating 4 mg PO Q8H PRN (Reason: nausea and vomiting) Qty: 20 1RF hydroxyzine HCl 50 mg tablet 50 mg PO Q8H PRN (Reason: anxiety) Qty: 60 1RF No Action metoclopramide HCl [Reglan] 5 mg tablet 5 mg PO . t.i.d. PRN (Reason: nausea and vomiting) Qty: 14 0RF Referrals: [facility] [Outside] Stand Alone Forms: Work/School Release Print Language: Thai
[2024-02-24 11:46] VITALS: BP 105/61; PULSE 81; RESP 16; TEMP 36.4; O2SAT 100
[2024-02-24 13:26] VITALS: BP 121/88; PULSE 71; RESP 12; TEMP 36.7; O2SAT 100
--- NOTE | 2024-02-24 13:29 | PC.NURSE ---
pt awake, reporting an improvement in symptoms. Denies RUQ pain, no nausea or vomiting, hands and feet have relaxed. resting. 2nd liter of fluids infusing. VSS
[2024-02-24] MEDS: Ketorolac Tromethamine 15 MG/ML VIAL IVPUSH (15:21)
[2024-02-24] MEDS: diphenhydrAMINE HCL 50 MG/ML VIAL 25 MG IVPUSH (15:21)
[2024-02-24] MEDS: Metoclopramide HCl 10 MG/2 ML VIAL IVPUSH (15:22)
[2024-02-24] MEDS: LORazepam 2 MG/ML VIAL IVPUSH (15:57)
[2024-02-24 16:10] LABS: UPreg QC Valid YES; Urine Pregnancy NEGATIVE (NEGATIVE)
[2024-02-24 16:17] LABS: Amphetamine Screen Urine Not Detected (Not Detect); Barbiturates, Urine Not Detected (Not Detect); Benzodiazepines Screen Urine Not Detected (Not Detect); Buprenorphine Scr Not Detected (Not Detect); Cannabinoid Screen Urine POSITIVE (Not Detect); Cocaine Screen Urine Not Detected (Not Detect); Fentanyl, urine Not Detected (Not Detect); Methadone Screen, Urine Not Detected (Not Detect); Opiate Screen Urine Not Detected (Not Detect); Oxycodone Screen Urine Not Detected (Not Detect); Phencyclidine Screen Urine Not Detected (Not Detect)
--- NOTE | 2024-02-24 16:28 | PHA.MEDREC ---
Addendum entered by Lyly Pablo RPh 02/24/24 16:41: Reviewed by [facility] Original Note: Pharmacy Consult ? Medication Reconciliation Pharmacy has completed the medication reconciliation.
[2024-02-24 16:39] VITALS: BP 128/71; PULSE 71; RESP 16; TEMP 36.7; O2SAT 100
--- NOTE | 2024-02-24 17:04 | P.HPHOSP_ITS ---
History of Present Illness Date of Service: 02/24/24 Chief Complaint: intractable nausea and vomiting A 23 years old lady with PMH of anxiety and cyclic vomiting who presented to the hospital with sudden onset of nausea and vomiting. She was supposed to have new job training today when she woke up feeling headach and sick to her stomach. vomiting multiple times with associated cramps and her hands became spastic. She denies any chest pain, palpitations, SOB, fever, chills, cough, diarrhea or urinary symptoms. In ED required multiple medicaitons: Ativan, Reglan, Benadryl, Droperidol with partial help. US abd negative for any acute findings. admitted for further work up and treatment. Review of Systems 2 Review of Systems: No fever, chills but has weakness No chest pain, palpitation No shortness of breath or coughing No abdominal pain, but has nausea or vomiting No urinary symptoms No any rash or wounds PMFSH Medical History (Updated 02/24/24 @ 17:44 by Camilo Bunn MD) Cyclical vomiting Social History Smoked in Last 30 Days: Yes Use of substances other than those prescribed or required for medical reasons: Yes Substance Use Type: Marijuana Advance Directives: No Meds Allergies Allergy/AdvReac Type Severity Reaction Status Date / Time No Known Allergies Allergy Verified 02/24/24 09:45 Active Medications: Current Medications Acetaminophen (Acetaminophen 325 Mg Tablet) 650 mg PO Q6H PRN PRN Reason: Pain, Mild (Pain Scale 1-3), fever or headache Calcium Carbonate (Calcium Carbonate 750 Mg Tab.Chew) 750 mg PO Q4H PRN PRN Reason: Heartburn Diphenhydramine HCl (Diphenhydramine Hcl 50 Mg/Ml Vial) 25 mg IVPUSH ONCE PRN PRN Reason: Nausea Lorazepam (Lorazepam 2 Mg/Ml Vial) 0.5 mg IVPUSH Q6H PRN PRN Reason: Anxiety Magnesium Hydroxide (Milk Of Magnesia 30 Ml Oral.Susp) 30 ml PO DAILY PRN PRN Reason: Constipation Melatonin (Melatonin 3 Mg Tablet) 6 mg PO BEDTIME PRN PRN Reason: Insomnia Ondansetron HCl (Ondansetron Hcl 4 Mg/2 Ml Vial) 4 mg IVPUSH Q8H PRN PRN Reason: Nausea and Vomiting Sodium Chloride (0.9 % Sodium Chloride Flush 3 Ml Syringe) 3 ml IVFLUSH QSHIFT L[place] Home Medications ?Medication ?Instructions ?Recorded ?Confirmed ?Last Taken ?Type No Known Home Meds 02/24/24 02/24/24 Unknown History Physical Exam 2 Vital Signs and Narrative: Vital Signs: Last Vital Signs Temp 98.0 F 02/24/24 16:39 Pulse 71 02/24/24 16:39 Resp 16 02/24/24 16:39 BP 128/71 02/24/24 16:39 Pulse Ox 100 02/24/24 16:39 O2 Del Method Room Air 02/24/24 16:39 BMI result Body Mass Index 23.9 Const: Other: Constitutional : Awake, interactive, not in distress Neck : Normal inspection, Supple Cardiovascular : RRR, no JVP, no lower extremity edema Respiratory : good bilateral air entry, no crackles, wheezes or rhonchi Gastrointestinal: soft, lax, Normal bowel sounds, Non tender Skin : Warm, Dry Neurological : Alert & oriented x3, No focal deficit , both hands in awkward spastic shape, fingers can be moved but get back to similar spastic position Results Labs 02/24/24 09:56 02/24/24 09:56 Labs: Laboratory Results - last 24 hr 02/24/24 02/24/24 09:56 15:59 MCV 90.0 MCH 31.5 MCHC 35.0 RDW 12.0 Plt Count 289 D MPV 11.6 Immature Gran % (Auto) 0.5 H Neut % (Auto) 82.5 H Lymph % (Auto) 13.8 L Forrest % (Auto) 2.9 Eos % (Auto) 0.1 Baso % (Auto) 0.2 Lymph # (Auto) 1.7 Forrest # (Auto) 0.4 Eos # (Auto) 0.0 Baso # (Auto) 0.0 Abs Immat Gran (auto) 0.06 H Absolute Neuts (auto) 10.4 H Absolute Nucleated RBC 0.000 Nucleated RBC % (auto) 0.0 Anion Gap 20 Estim Creat Clear Calc 88.2 Estimated GFR > 60 Random Glucose 159 H Calcium 10.2 Magnesium 1.9 Total Bilirubin 0.6 Direct Bilirubin 0.2 AST 10 ALT 9 Alkaline Phosphatase 40 Troponin I High Sens < 2.7 Total Protein 7.8 Albumin 4.6 Lipase 16 Urine Test NEGATIVE Urine Opiates Screen Not Detected Ur Buprenorphine Scrn Not Detected Ur Oxycodone Screen Not Detected Urine Methadone Screen Not Detected Urine Fentanyl Screen Not Detected Ur Barbiturates Screen Not Detected Ur Phencyclidine Scrn Not Detected Ur Amphetamines Screen Not Detected U Benzodiazepines Scrn Not Detected Urine Cocaine Screen Not Detected U Marijuana (THC) Screen POSITIVE H Ethyl Alcohol < 10 Influenza Type A (PCR) NEGATIVE Influenza Type B (PCR) NEGATIVE RSV RNA Qual (PCR) NEGATIVE SARS-CoV-2 RNA (RT-PCR) NEGATIVE Assessment and Plan (1) Intractable nausea and vomiting: Status: Acute Plan A 23 years old lady with PMH of anxiety and cyclic vomiting who presented to the hospital with sudden onset of nausea and vomiting. Intractable nausea and vomiting could be 2/2 cycliv vomiting or stomach bug Tox screen +Ve for THC US negative for any acute findings IVF w D5LR NPO advance diet as tolerated Zofran, Ativan as needed for nausea DVT PPx early ambulation, low risk Quality Stroke Does the patient have a stroke diagnosis?: No VTE Prior VTE?: No VTE Risk Level:: Medical - low VTE Device Contraindication: Treatment Not Indicated VTE Drug Contraindication: Treatment Not Indicated
[2024-02-24 18:13] LABS: Appearance Urine Clear; Color Urine Yellow; Glucose Urine UA Negative (Negative); Leukocyte Esterase Urine Negative (Negative); Nitrite Urine Negative (Negative); UMIC TRIGGER UACC YES; Urine Blood Trace (Negative); Urine Ketones >=160 mg/dL (Negative); Urine Protein Negative (Neg-Trace)
[2024-02-24 18:18] LABS: Bacteria Urine None Seen (None Seen); Hyaline Casts Urine 0-2 /LPF (0-2); RBC Urine 0-2 /HPF (0-2); WBC Urine 0-5 /HPF (0-5)
[2024-02-24] MEDS: Dextrose 5 % and Lactated Ring 1,000 ML 100 ML IVCONT (18:34)
--- NOTE | 2024-02-24 19:30 | PC.NURSE ---
Assumed care of pt.
[2024-02-24 21:35] VITALS: BP 115/66; PULSE 87; RESP 18; TEMP 36.2; O2SAT 98
[2024-02-24] MEDS: ondansetron HCL 4 MG/2 ML VIAL IVPUSH (22:01)
[2024-02-25] MEDS: Metoclopramide HCl 10 MG/2 ML VIAL IVPUSH (02:18)
[2024-02-25] MEDS: Haloperidol Lactate 5 MG/ML VIAL 2 MG IM (02:26)
[2024-02-25 03:31] VITALS: BP 110/60; PULSE 62; RESP 18; TEMP 36.6; O2SAT 99
[2024-02-25] MEDS: Dextrose 5 % and Lactated Ring 1,000 ML 100 ML IVCONT (06:01)
[2024-02-25 07:20] LABS: Anion Gap 10 (12-20); Blood Urea Nitrogen 6 mg/dL (9-16); Carbon Dioxide 22 mmol/L (22-29); Chloride 110 mmol/L (96-108); Creatinine Clr Calc Pharmacy 103.4; Estimated Glomerular Filt Rate > 60; Glucose Random 118 mg/dL (60-115); Potassium 3.2 mmol/L (3.3-5.1); Sodium 139 mmol/L (135-145)
[2024-02-25 07:22] VITALS: BP 96/58; PULSE 76; RESP 18; TEMP 36.4; O2SAT 96
[2024-02-25] MEDS: Potassium Chloride/H20 10 MEQ/100 ML PIGGYBACK 100 MEQ IV (10:42)
[2024-02-25 11:30] VITALS: BP 112/60; PULSE 76; RESP 18; TEMP 36.3; O2SAT 98
--- NOTE | 2024-02-25 11:50 | P.DS_ITS ---
DS: Providers Provider Date of Service: 02/25/24 Date of admission: 02/24/24 16:54 Primary care physician: Unknown Physician DS: Diagnosis Discharge Diagnosis (1) Intractable nausea and vomiting: Status: Acute (2) Cyclical vomiting: Status: Acute (3) Acute hypokalemia: Status: Acute DS: Summary Hospital Course Hospital Course: Admission note HPI A 23 years old lady with PMH of anxiety and cyclic vomiting who presented to the hospital with sudden onset of nausea and vomiting. She was supposed to have new job training today when she woke up feeling headach and sick to her stomach. vomiting multiple times with associated cramps and her hands became spastic. She denies any chest pain, palpitations, SOB, fever, chills, cough, diarrhea or urinary symptoms. In ED required multiple medicaitons: Ativan, Reglan, Benadryl, Droperidol with partial help. US abd negative for any acute findings. admitted for further work up and treatment. Hospital course The patient was admitted for evaluation of Intractable nausea and vomiting which is likely secondary to cyclic vomiting or stomach bug given Tox screen +ve for THC. US negative for any acute findings. She was treated with IVF w D5LR, NPO, Zofran, Ativan as needed for nausea and advancing diet as tolerated which she was able to tolerate and felt ready to go back home. Advised to avoid Marijuana products and to advance diet as tolerated while taking Zofran as needed. Spasticity in her hands are likely psychological and resolved as her nausea and vomiting improved. Hypokalemia replaced. Discharge plan Advance your diet as tolerated over the next 2 days. focus more on fluids and stay well hydrated Zofran as needed for nausea Avoid smoking Marijuana Time Attestation Discharge Coordination Time (in mins): 26 Quality: Safe Use of Opioids Does Pt have an Active Cancer Diagnosis on the Problem List?: No Quality: Stroke Does the patient have a stroke diagnosis?: No Physical Exam Vital Signs: Vital Signs: Last Vital Signs Temp 97.4 F 02/25/24 11:30 Pulse 76 02/25/24 11:30 Resp 18 02/25/24 11:30 BP 112/60 02/25/24 11:30 Pulse Ox 98 02/25/24 11:30 O2 Del Method Room Air 02/25/24 11:30 BMI result Body Mass Index 23.9 Const: Other: Constitutional : Awake, interactive, not in distress Neck : Normal inspection, Supple Cardiovascular : RRR, no JVP, no lower extremity edema Respiratory : good bilateral air entry, no crackles Gastrointestinal: soft, lax, Normal bowel sounds, Non tender Skin : Warm, Dry Neurological : Alert & oriented x3, No focal deficit DS: Data Data Completed and Pending Labs on day of discharge: Laboratory Results - last 24 hr 02/24/24 02/25/24 15:59 06:40 Sodium 139 Potassium 3.2 L Chloride 110 H Carbon Dioxide 22 Anion Gap 10 L BUN 6 L Creatinine 0.70 Estim Creat Clear Calc 103.4 Estimated GFR > 60 Random Glucose 118 H Calcium 9.0 D Urine Color Yellow Urine Appearance Clear Urine pH 6.0 Ur Specific [place] 1.020 Urine Protein Negative Urine Glucose (UA) Negative Urine Ketones >=160 Urine Blood Trace H Urine Nitrite Negative Ur Leukocyte Esterase Negative Urine RBC 0-2 Urine WBC 0-5 Ur Squamous Epith Cells 3-5 Urine Bacteria None Seen Hyaline Casts 0-2 Urine Test NEGATIVE Urine Opiates Screen Not Detected Ur Buprenorphine Scrn Not Detected Ur Oxycodone Screen Not Detected Urine Methadone Screen Not Detected Urine Fentanyl Screen Not Detected Ur Barbiturates Screen Not Detected Ur Phencyclidine Scrn Not Detected Ur Amphetamines Screen Not Detected U Benzodiazepines Scrn Not Detected Urine Cocaine Screen Not Detected U Marijuana (THC) Screen POSITIVE H Imaging US - abdomen: Radiologist's impression: ITS Impressions Abdomen Ultrasound 02/24/24 14:55 IMPRESSION: No sonographic evidence of cholecystitis. Electronically signed by: Yayo Santizo DO 02/24/2024 10:09 PM EDT Discharge Plan Discharge Anticipated Discharge Date/Time: 02/25/24 11:35 Patient Disposition: Home, Self-Care Discharge Diagnosis: Nausea and vomiting Referrals: [facility] [Outside] Physician,Unknown J [Primary Care Provider] - 1 Week Discharge Medications: New ondansetron 4 mg tablet,disintegrating 4 mg PO Q8H PRN (Reason: nausea and vomiting) Qty: 20 0RF Discharge Orders: Discharge Order (Routine); Ordered 02/25/24 Ordered By: Camilo Bunn Diet: Advance to usual diet Activity on Discharge: As tolerated Stand Alone Forms: Patient Portal Discharge page, Work/School Release Print Language: Tamazight Activity Restrictions/Additional Instructions: eat a bland diet, stay hydrated, follow up with therapy number listed below Care Plan Goals: Advance your diet as tolerated over the next 2 days. focus more on fluids and stay well hydrated Zofran as needed for nausea Avoid smoking Marijuana Health Concerns: Read below Plan of Treatment: Read below Assessment: Read below Patient Instructions: Acute Nausea and Vomiting (ED), Anxiety (ED)
--- NOTE | 2024-02-25 13:10 | MHC.CM.PN ---
Patient dc'd home self care prior to CM assessment. CM attempted to call patient to deliver HUSSEIN. No answer, HUSSEIN verbally delivered via . Copy to be mailed to home address on file via certified mail.
== END 2024-02-25 13:05 | disposition home or self-care (01) ==
LOC: HO.ED 16:18 → HO.EDOVER 17:06 → HO.S3 20:16
PROVIDERS: Emergency Medicine; Admitting Provider Student in an Organized Health Care Education/Training Program; Emergency Provider Emergency Medicine; Visit Provider Student in an Organized Health Care Education/Training Program
DX: R11.2 Nausea with vomiting, unspecified (principal); R11.15 Cyclical vomiting syndrome unrelated to migraine; E87.6 Hypokalemia; R10.11 Right upper quadrant pain; R25.2 Cramp and spasm; R06.4 Hyperventilation; Z03.818 Encounter for observation for suspected exposure to other biological agents ruled out
CPT/HCPCS: 0241U; 36415; 76705; 80048; 80076; 80307; 81001; 81025; 83690; 83735; 84484; 85025; 93005; 96361; 96365; 96375; 96376; 99221; 99285; J1200; J1630; J1790; J1885; J2060; J2405; J2765; J3480

== ENCOUNTER → 2024-02-24 16:54 | Outpatient (BNV) | payer OTHER, SELFPAY | PROVIDERS: Admitting Provider Student in an Organized Health Care Education/Training Program; Emergency Provider Emergency Medicine; Visit Provider Student in an Organized Health Care Education/Training Program | DX: R11.2 Nausea with vomiting, unspecified (principal) | CPT/HCPCS: 99222; 99238 ==